=== PATIENT | female | born 1960 | race Caucasian/White ===

== ENCOUNTER → 2019-03-16 10:53 | Outpatient (CLI) | payer MEDICARE, MEDICAID, SELFPAY ==
--- NOTE | ~2019-03-16 | XR_ITS ---
XR chest 2V DATE: 03/16/2019 11:32 INDICATION: Pneumonia due to infectious organism. Weight-bearing. TECHNIQUE: 2 views COMPARISON: 06/03/2017 PA and lateral chest FINDINGS: Normal heart size. There is ill-defined haziness overlying the right mid and lower lung zon es suggesting right-sided pulmonary infiltrate. The left lung appears clear. No pleural effusion or p ulmonary vascular congestion or pneumothorax is detected. IMPRESSION: Right mid and lower lung infiltrate are suggested. Reviewed, dictated and finalized at location B. [employer]IVE ENGINEER
== END ==
DX: J18.9 Pneumonia, unspecified organism (principal); R91.8 Other nonspecific abnormal finding of lung field
CPT/HCPCS: 71046

== ENCOUNTER 2019-12-15 20:49 | Inpatient (IN) | payer MEDICARE, MEDICAID, SELFPAY ==
--- NOTE | ~2019-12-15 | XR_ITS ---
EXAMINATION: XR chest 1V portable INDICATION: Shortness of breath and weakness TECHNIQUE: Portable AP chest at 2009 hours COMPARISON: 03/16/2019 FINDINGS: There are diffuse airspace opacities, worst in the mid and lower lung zones. Cardiomegaly i s noted. There is no pleural effusion or pneumothorax. Neurostimulator leads project over the midthor acic spine. IMPRESSION: 1. Diffuse airspace opacities, consistent with atelectasis and/or pneumonia and/or pulmonary edema. 2. Cardiomegaly. Reviewed, dictated and finalized at location A. IMPRESSION: 1. Diffuse airspace opacities, consistent with atelectasis and/or pneumonia and /or pulmonary edema. 2. Cardiomegaly.
--- NOTE | ~2019-12-15 | CT_ITS ---
EXAMINATION: CTA chest PE protocol DATE: 12/15/2019 22:23 INDICATION: Shortness of breath TECHNIQUE: Computed tomography angiography (CTA) of the chest was performed with 100 mL Omnipaque-350 intravenous contrast timed to evaluate the pulmonary arteries. Coronal maximum intensity projection 3D-reconstructions were created by the technologist. The dose-length product (DLP) was 811.71 mGy-cm. Automated exposure control and iterative reconstruction technique were employed. COMPARISON: 09/14/2013 FINDINGS: The pulmonary arteries are well-opacified. No pulmonary embolism is identified. There are d iffuse groundglass opacities with a mid and lower lung zone predominance. No pleural effusion or pneu mothorax is identified. There is a small pericardial effusion. The heart size is normal. There is med iastinal and bilateral hilar lymphadenopathy. There is severe thoracic spondylosis. Neurostimulator l simran project in the central spinal canal. IMPRESSION: 1. No pulmonary embolism. 2. Commonly reported imaging features of COVID-19 pneumonia are present. Other processes such as infl uenza pneumonia and organizing pneumonia, as can be seen with drug toxicity and connective tissue dis ease, can cause a similar imaging pattern. 3. Small pericardial effusion. 4. Bilateral hilar and mediastinal lymphadenopathy, likely reactive. Reviewed, dictated and finalized at location A. IMPRESSION: 1. No pulmonary embolism. 2. Commonly reported imaging features of COVID-19 pneumonia are present. Other processes such as influenza pneumonia and organizing pneumonia, as can be seen with drug toxicity and connective tissue disease, can cause a similar imaging p attern. 3. Small pericardial effusion. 4. Bilateral hilar and mediastinal lymphadenopathy, likely reactive.
[2019-12-15 20:47] VITALS: BP 131/70; PULSE 94; RESP 16; TEMP 36.8; O2SAT 90
--- NOTE | 2019-12-15 21:08 | ECG_ITS ---
Measurements Intervals [place] Rate: 97 P: 52 MN: 155 QRS: -3 QRSD: 98 T: -42 QT: 393 QTc: 499 Interpretive Statements SINUS RHYTHM POSSIBLE LEFT ATRIAL ENLARGEMENT INCOMPLETE RIGHT BUNDLE BRANCH BLOCK LOW QRS VOLTAGE IN PRECORDIAL LEADS T WAVE ABNORMALITY IN INFERIOR LEADS- CONSIDER ISCHEMIA BASELINE ARTIFACT- I, III, AVR, AVL, AVF, ABNORMAL ECG Electronically Signed On 12-16-2019 6:45:13 CDT by Jamey Conner D.O.
--- NOTE | 2019-12-15 21:10 | ED.GENADULT ---
HPI - General Adult General Chief complaint: Shortness of Breath/Dyspnea Stated complaint: sob Time Seen by Provider: 12/15/19 20:51 Source: patient History of Present Illness HPI narrative: Patient is a 59 y/o female complaining of severe SOB since last (5 days ago). She state that minimal exertion aggravates her SOB. She has some chronic dry cough. She also has mid-sternal chest pain that's worse with cough for 1 month. She denies any fever. She has O2 at home which she only uses with exertion. She states that she normally does not use O2 at rest. Per EMS, her sat was 80% on 4L when they arrived. She was given Neb and IV Solumedrol. Related Data Home Medications Medication Instructions Recorded Confirmed atorvastatin 20 mg PO DAILY 12/15/19 12/16/19 celecoxib 200 mg PO BID 12/15/19 12/16/19 cyclobenzaprine 10 mg PO TID PRN 12/15/19 12/16/19 duloxetine 60 mg PO DAILY 12/15/19 12/16/19 esomeprazole magnesium 20 mg PO DAILY 12/15/19 12/16/19 estradiol 2 mg PO DAILY 12/15/19 12/16/19 gabapentin 600 mg PO TID 12/15/19 12/16/19 metoprolol succinate 25 mg PO DAILY 12/15/19 12/16/19 [id number] acid 1 tablet PO DAILY 12/15/19 12/16/19 [[employer] Women] naloxegol [Movantik] 25 mg PO DAILY 12/15/19 12/16/19 oxycodone [OxyContin] 10 mg PO BID 12/15/19 12/16/19 oxycodone-acetaminophen 5 - 325 tablet PO BID PRN 12/15/19 12/16/19 prednisone 20 mg PO DAILY 12/15/19 12/16/19 sertraline 100 mg PO DAILY 12/15/19 12/16/19 Allergies Allergy/AdvReac Type Severity Reaction Status Date / Time No Known Allergies Allergy Verified 12/15/19 21:02 Review of Systems Constitutional: Constitutional: Denies chills, Denies fever(s), Denies headache(s) and Denies weakness Eyes: Eyes: Denies blurry vision ENT: Denies headache(s) and Denies neck pain Cardiovascular: Cardiovascular: Reports chest pain and Reports dyspnea Respiratory: Respiratory: Reports cough and Reports dyspnea Gastrointestinal: Gastrointestinal: Denies abdominal pain, Denies diarrhea, Denies nausea and Denies vomiting Genitourinary: Genitourinary: Denies hematuria and Denies dysuria Musculoskeletal: Musculoskeletal: Denies back pain and Denies neck pain Neurologic: Denies headache(s) and Denies weakness PMF Past Medical History Medical History (Updated 12/16/19 @ 14:22 by Neela Wilkins MD) Borderline diabetes Chronic respiratory failure COPD (chronic obstructive pulmonary disease) PTSD (post-traumatic stress disorder) Surgical History Surgical History (Updated 12/16/19 @ 11:04 by Sissy Katz DO) History of cholecystectomy History of total right knee replacement S/P insertion of spinal cord stimulator Status post left partial knee replacement Family History Family History (Updated 12/16/19 @ 11:02 by Sissy Katz DO) Mother Depression Congestive heart failure (CHF) Sibling Family history of coronary artery disease Sibling , brother from COVID-19 Central sleep apnea Other Hypertension Social History Social History (Updated 12/16/19 @ 11:03 by Sissy Katz DO) Smoking status: Former smoker Smoking end date: 03/11/15 Alcohol intake: never Substance use: never Living arrangements: with family Occupation/Education: unemployed Additional occupation/education comments: disability Gender identity (if verbalized by the patient): Female Spiritual care concerns: No Exam Const: General: no acute distress and well developed Orientation/consciousness: oriented to person, oriented to place, oriented to time and patient oriented x3 HENMT: Head: normocephalic Ears: external ears normal General nose exam: Normal external nose present Eyes: General: appearance normal, both eyes and all related structures Conjunctivae: conjunctivae normal Neck: Neck: normal visual inspection and full ROM Chest: Chest palpation & inspection: normal inspection of the chest and
[2019-12-15 21:43] LABS: Basophils Percent Auto 0.2 % (0.2-1.2); Eosinophils Percent Auto 0.2 % (0-4.4); Hematocrit 37.4 % (37.0-47.0); Hemoglobin 12.1 g/dL (12.0-15.0); Immature Granulocyte Absolute 0.11 K/mm3 (0.00-0.031); Immature Granulocyte Percent A 0.6 % (0-0.5); Lymphocytes Absolute Auto 2.39 K/mm3 (0.9-3.2); Lymphocytes Percent Auto 12.6 % (18.3-44.2); Mean Corpuscular HGB Conc 32.4 g/dl (32-36); Mean Corpuscular Hemoglobin 27.4 pg (26-34); Mean Corpuscular Volume 84.6 fl (80-100); Mean Platelet Volume 10.5 fl (7.4-10.4); Monocytes Absolute Auto 0.6 K/mm3 (0.1-0.6); Monocytes Percent Auto 3.2 % (2.6-8.5); Neutrophils Absolute Auto 15.7 K/mm3 (1.3-6.7); Neutrophils Percent Auto 83.2 % (45.5-73.1); Nucleated Red Blood Cells Perc 0.2 % (0.0-0.2); Platelet Count Result 379 k/mm3 (150-375); Red Blood Count 4.42 M/mm3 (4.2-5.4); Red Cell Distribution Width 17.6 % (11.5-14.5); White Blood Count 18.9 K/mm3 (4.5-10.0)
[2019-12-15 21:50] LABS: Alveolar/Arterial O2 Gradient 222.8 mmHg; Base Excess ABG -0.6 mEq/l (+/-2.0); Device NASAL CANNULA; Fractional Inspired Oxygen 45 %; HCO3 ABG 22.1 mEq/l (22.0-26.0); Modified Allen's Test Pass; Oxygen Content ABG 16.7 %vol (16.0-22.0); Oxygen Saturation ABG 93.7 % (95.0-100.0); Oxyhemoglobin 90.4 % THb (90.0-100.0); PCO2 ABG 30.9 mmHg (35.0-45.0); PO2 ABG 62.9 mmHg (80.0-100.0); Site Drawn RIGHT RADIAL; Total Hemoglobin 13.1 g/dL (12.0-18.0); pH ABG 7.473 (7.350-7.450)
[2019-12-15 21:54] LABS: Alanine Aminotransferase 572 U/L (4-35); Albumin Level 3.6 g/dL (3.5-5.1); Alkaline Phosphatase 156 U/L (38-126); Anion Gap 8 mmol/L (8-16); Aspartate Amino Transferase 425 U/L (14-36); Bilirubin,Total 0.5 mg/dL (0.2-1.3); Blood Urea Nitrogen 18 mg/dL (7-17); Calcium 8.9 mg/dL (8.4-10.2); Carbon Dioxide 25 mmol/L (22-30); Chloride 102 mmol/L (98-107); Estimated CRCL calculation 88 ml/min; Estimated Glomerular Filt Rate > 60; Glucose 216 mg/dL (65-105); Sodium 135 mmol/L (137-145)
[2019-12-15 21:55] LABS: D Dimer 3.76 ug/mL (<0.48)
[2019-12-15 22:09] LABS: NT Pro B Type Natriuretic Pept 5430 PG/ML (5-100); Troponin I 0.048 ng/mL (0.000-0.034)
[2019-12-15 22:11] VITALS: BP 123/68; PULSE 93; RESP 19; O2SAT 96
--- NOTE | 2019-12-15 22:16 | PC.NURSE ---
Patient being taken to CT.
[2019-12-15] MEDS: FUROSEMIDE INJ 40 MG/4 ML VIAL IV PUSH (22:39)
[2019-12-15 22:53] LABS: Lactic Acid Reflex 2.8 mmol/L (0.7-2.1)
--- NOTE | 2019-12-15 23:10 | PC.NURSE ---
Report given to RIK Navarro to which care transferred.
[2019-12-15 23:31] VITALS: BP 141/68; PULSE 96; RESP 17; TEMP 37.1; O2SAT 95
[2019-12-16] VITALS (21 sets, daily range): BP systolic 108–126; BP diastolic 50–72; PULSE 61–97; RESP 16–28; TEMP 36.3–36.8; O2SAT 90–100; BMI 39.4
--- NOTE | 2019-12-16 01:01 | ADMGEN ---
This patient, Aviva Cooper, was admitted to Intensive Care Unit-7. Patient/family oriented to hospital policies and general routines including ID bracelet, bed and alarms, visiting hours, pain management, procedures, bathroom and other care routines, personal items, smoking policy, room service/diet, and visiting hours. Valuables list has been completed. Information on how to activate the Rapid Response Team has been discussed. Patient/Family are encouraged to report perceived risks to care and to ask questions if they do not understand what they are told or what they should do. report from Ramon JOLLY arrived approx [id number]
[2019-12-16 01:39] LABS: Reflex Lactic Acid Yes or No Add Lactic
[2019-12-16 06:42] LABS: Lactic Acid 4.4 mmol/L (0.7-2.1)
[2019-12-16 06:49] LABS: Troponin I 0.027 ng/mL (0.000-0.034)
--- NOTE | 2019-12-16 07:01 | PM.IMHP ---
H&P: HPI History of Present Illness Date/Time: 12/16/19 07:01 Chief complaint: acute respiratory failure Narrative: Aviva Cooper is a 59 year old female with PMHx COPD on 2L HOT PRN, h/o [place], borderline DMII who presents to the ED with complaints of dyspnea. 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 Symptom onset was about 5 days ago. She started feeling dyspneic last night and slowly uptitrated her O2 to 4L. She is coughing but unable to produce sputum. Previous documentation shows 80% O2 sat on 4L. Brother yesterday COVID-19, planned for tomorrow. she states she did not have any close physical contact with her brother over the past few weeks. She endorses cough but unable to produce sputum. She does not know of any heart failure, does not recall having echocardiogram. She denies fever, chills, nausea, vomiting, diarrhea, chest pain. In the ED: WBC 18.9, D-dimer 3.76, LA 2.8, flu neg, AB.47/30.9/62.9/22. she was up to 12 L high-flow oxygen. Pt admitted to IMU for acute hypoxic respiratory failure. Covid pending. Review of Systems Review of Systems: Narrative: Constitutional: No Weight Change, No Fever, No Chills, No Night Sweats, No Fatigue, No Malaise ENT/Mouth: No Hearing Changes, No Ear Pain, No Nasal Congestion, No Sinus Pain, No Hoarseness, No sore throat, No Rhinorrhea, No Swallowing Difficulty Eyes: No Eye Pain, No Swelling, No Redness, No Discharge, No Vision Changes Cardiovascular: No Chest Pain, No PND, No Claudication, No Edema, No Palpitations Respiratory: No Sputum, No Wheezing, No Smoke Exposure. endorses cough unable to produce sputum, dyspnea Gastrointestinal: No Nausea, No Vomiting, No Diarrhea, No Constipation, No Pain, No Heartburn, No Anorexia, No Dysphagia, No Hematochezia, No Melena, No Flatulence, No Jaundice Genitourinary: No Dysuria, No Urinary Frequency, No Hematuria, No Urinary Incontinence, No Hesitancy Musculoskeletal: No Arthralgias, No Myalgias, No Joint Swelling, No Joint Stiffness, No Back Pain, No Neck Pain Skin: No Skin Lesions, No Pruritis, No Hair Changes Neuro: No Weakness, No Numbness, No Paresthesias, No Loss of Consciousness, No Syncope Psych: No Anxiety/Panic, No Depression, No Insomnia, No Personality Changes, No Delusions Heme/Lymph: No Bruising, No Bleeding,No Lymphadenopathy Endocrine: No Polyuria, No Polydipsia, No Temperature Intolerance [facility] Past Medical History Medical History (Updated 12/16/19 @ 16:56 by Sissy Katz DO) Borderline diabetes Chronic respiratory failure COPD (chronic obstructive pulmonary disease) Hyperlipidemia Myocardial infarct, old PTSD (post-traumatic stress disorder) Surgical History Surgical History (Updated 12/16/19 @ 11:04 by Sissy Katz DO) History of cholecystectomy History of total right knee replacement S/P insertion of spinal cord stimulator Status post left partial knee replacement Family History Family History (Updated 12/16/19 @ 11:02 by Sissy Katz DO) Mother Depression Congestive heart failure (CHF) Sibling Family history of coronary artery disease Sibling , brother from COVID-19 Central sleep apnea Other Hypertension Social History Social History (Updated 12/16/19 @ 11:03 by Sissy Katz DO) Smoking status: Former smoker Smoking end date: 03/11/15 Alcohol intake: never Substance use: never Living arrangements: with family Occupation/Education: unemployed Additional occupation/education comments: disability Gender identity (if verbalized by the patient): Female Spiritual care concerns: No Meds Home Medications and Allergies Home Medications Medication Instructions Recorded Confirmed Type atorvastatin 20 mg PO DAILY 12/15/19 12/16/19 History celecoxib 200 mg PO BID 12/15/19 12/16/19 History cyclobenzaprine 10 mg PO TID PRN 12/15/19 12/16/19 History duloxetine 60
[2019-12-16 08:45] LABS: Basophils Percent Auto 0.1 % (0.2-1.2); Hematocrit 38.9 % (37.0-47.0); Hemoglobin 12.2 g/dL (12.0-15.0); Immature Granulocyte Absolute 0.11 K/mm3 (0.00-0.031); Immature Granulocyte Percent A 0.6 % (0-0.5); Lymphocytes Absolute Auto 1.23 K/mm3 (0.9-3.2); Lymphocytes Percent Auto 7.2 % (18.3-44.2); Mean Corpuscular HGB Conc 31.4 g/dl (32-36); Mean Corpuscular Hemoglobin 27.2 pg (26-34); Mean Corpuscular Volume 86.8 fl (80-100); Mean Platelet Volume 11.5 fl (7.4-10.4); Monocytes Absolute Auto 0.3 K/mm3 (0.1-0.6); Monocytes Percent Auto 1.6 % (2.6-8.5); Neutrophils Absolute Auto 15.6 K/mm3 (1.3-6.7); Neutrophils Percent Auto 90.5 % (45.5-73.1); Nucleated Red Blood Cells Absolute Auto 0.1 K/mm3 (0.0-0.012); Nucleated Red Blood Cells Perc 0.3 % (0.0-0.2); Platelet Count Result 405 k/mm3 (150-375); Red Blood Count 4.48 M/mm3 (4.2-5.4); Red Cell Distribution Width 17.9 % (11.5-14.5); White Blood Count 17.2 K/mm3 (4.5-10.0)
[2019-12-16] MEDS: SODIUM CHLORIDE 0.9% IV 1,000 ML 500 ML IV CONT (09:45)
[2019-12-16] MEDS: ALBUTEROL SULFATE (*SP) INHALER 2 PUFF INHALATION ×3 (09:55→16:08)
[2019-12-16] MEDS: SERTRALINE HCL 50 MG TABLET 100 MG PO (11:45)
[2019-12-16] MEDS: PANTOPRAZOLE 40 MG TABLET PO (11:46)
[2019-12-16] MEDS: ATORVASTATIN 20 MG TABLET PO (11:46)
[2019-12-16] MEDS: METOPROLOL SUCCINATE EXT REL 25 MG TABCR PO (11:46)
[2019-12-16] MEDS: GABAPENTIN 300 MG CAPSULE 600 MG PO ×2 (11:46→20:35)
[2019-12-16] MEDS: MULTIVITAMINS /C LUTEIN (CENTRUM SILVER) TABLET *BKC 1 TAB PO (11:47)
[2019-12-16] MEDS: DULoxetine HCL 60 MG CAPSULE.DR PO (11:47)
[2019-12-16] MEDS: oxyCODONE HCL (*CRX) 10 MG TAB SR 12HR PO ×2 (11:47→20:34)
[2019-12-16] MEDS: methylPREDNISolone SOD SUCC 125 MG VIAL 60 MG IV PUSH ×3 (11:47→23:13)
[2019-12-16] MEDS: guaiFENesin 12 HR 600 MG TABCR 1200 MG PO ×2 (11:47→20:34)
[2019-12-16 12:27] LABS: Alanine Aminotransferase 478 U/L (4-35); Albumin Level 3.5 g/dL (3.5-5.1); Alkaline Phosphatase 136 U/L (38-126); Anion Gap 9 mmol/L (8-16); Aspartate Amino Transferase 216 U/L (14-36); Bilirubin,Total 0.5 mg/dL (0.2-1.3); Blood Urea Nitrogen 21 mg/dL (7-17); Calcium 8.5 mg/dL (8.4-10.2); Carbon Dioxide 27 mmol/L (22-30); Chloride 100 mmol/L (98-107); Estimated CRCL calculation 75 ml/min; Estimated Glomerular Filt Rate > 60; Glucose 296 mg/dL (65-105); Lactic Acid Reflex 2.5 mmol/L (0.7-2.1); Potassium 4.1 mmol/L (3.4-5.0); Sodium 136 mmol/L (137-145)
[2019-12-16 12:33] LABS: Lactate Dehydrogenase 1582 U/L (313-618)
[2019-12-16 12:37] LABS: Troponin I 0.014 ng/mL (0.000-0.034)
[2019-12-16 12:40] LABS: CRP 13.8 mg/dL (<1.0)
[2019-12-16 14:30] LABS: SARS-CoV-2 RNA PCR Negative
[2019-12-16 15:11] LABS: Reflex Lactic Acid Yes or No Add Lactic
[2019-12-16 17:19] LABS: Lactic Acid 1.9 mmol/L (0.7-2.1)
--- NOTE | 2019-12-16 18:01 | PC.NURSE ---
pt transferred to room 203, report given to Chika JOLLY
[2019-12-16] MEDS: ALBUTEROL SULFATE NEB 2.5 MG/0.5 ML INH INHALATION (19:14)
--- NOTE | 2019-12-16 19:45 | PC.NURSE ---
183-Received pt from ICU to room 203- pt oriented to room and routines of floor- monitor SR 89- O2 on 4 l/nc -resp nonlabored- denies SOB at this time -
[2019-12-17] VITALS (15 sets, daily range): BP systolic 136–141; BP diastolic 68–70; PULSE 69–89; RESP 12–22; TEMP 35.9–36.1; O2SAT 96–98
[2019-12-17] MEDS: ALBUTEROL SULFATE NEB 2.5 MG/0.5 ML INH INHALATION ×3 (01:25→15:00)
[2019-12-17] MEDS: CYCLOBENZAPRINE HCL 10 MG TABLET PO (03:05)
[2019-12-17 05:50] LABS: Hematocrit 34.9 % (37.0-47.0); Hemoglobin 11.2 g/dL (12.0-15.0); Mean Corpuscular HGB Conc 32.1 g/dl (32-36); Mean Corpuscular Hemoglobin 26.9 pg (26-34); Mean Corpuscular Volume 83.9 fl (80-100); Mean Platelet Volume 10.7 fl (7.4-10.4); Platelet Count Result 380 k/mm3 (150-375); Red Blood Count 4.16 M/mm3 (4.2-5.4); Red Cell Distribution Width 17.3 % (11.5-14.5); White Blood Count 18.1 K/mm3 (4.5-10.0)
[2019-12-17 06:04] LABS: Alanine Aminotransferase 434 U/L (4-35); Albumin Level 3.3 g/dL (3.5-5.1); Alkaline Phosphatase 117 U/L (38-126); Anion Gap 9 mmol/L (8-16); Aspartate Amino Transferase 171 U/L (14-36); Bilirubin,Total 0.3 mg/dL (0.2-1.3); Blood Urea Nitrogen 25 mg/dL (7-17); Calcium 8.8 mg/dL (8.4-10.2); Carbon Dioxide 27 mmol/L (22-30); Chloride 99 mmol/L (98-107); Estimated CRCL calculation 77 ml/min; Estimated Glomerular Filt Rate > 60; Glucose 296 mg/dL (65-105); Magnesium 2.2 mg/dL (1.6-2.3); Potassium 4.2 mmol/L (3.4-5.0); Sodium 135 mmol/L (137-145)
[2019-12-17] MEDS: GABAPENTIN 300 MG CAPSULE 600 MG PO ×2 (06:21→13:20)
[2019-12-17] MEDS: methylPREDNISolone SOD SUCC 125 MG VIAL 60 MG IV PUSH (06:21)
--- NOTE | 2019-12-17 06:56 | PM.IMPN ---
Progress Note: A&P Additional Plan #Acute on chronic hypoxic respiratory failure #Acute exacerbation of COPD - patient is on 4 L of oxygen, breathing comfortably on 2 L O2 at home - no fevers or sputum production or focal lung findings, likely COPD exacerbation as opposed to pneumonia - steroids: Solu-Medrol 60 mg IV weaning to b.i.d. from q.6, will discharge with steroid taper - albuterol and ipratropium nebs q6hr while awake - ABx: continue azithromycin for anti-inflammatory properties, stopping Rocephin - can continue Mucinex b.i.d. - incentive spirometer reaching 1500 cc - echocardiogram reviewed no sign heart failure, left ventricular systolic function normal, EF 60% # Chronic conditions # PTSD, anxiety / depression: Continue home sertraline, duloxetine # Hyperlipidemia/h/o PA: continue atorvastatin, aspirin # GERD: protonix for home nexium # HTN: cont metoprolol # chronic pain status post spine stimulator - continue home cyclobenzaprine, OxyContin, [place] - can use home movantik if she provides - [employer] reviewed patient is on OxyContin 10 mg b.i.d., [place] 5 mg, last filled 12/05/2019. Diet: Cardiac DVT prophylaxis: Lovenox Code status: Full code Disposition: IMU, likely home tomorrow Time Spent With Patient Time with patient: 15 - 25 minutes Subjective Date/time seen: 12/17/19 06:56 Patient examined bedside. She was moved to IMU last night. O2 weaned down to 4L. She at home uses 2L PRN. She feels much better the like to go home, we discussed trying to wean her oxygen down some more and that she is still on high-dose steroids. Echocardiogram 12/01/2019 from [facility] reviewed showing technically difficult study, normal left ventricular systolic function, EF 60%, some impaired LV relaxation , mild tricuspid regurgitation. patient was planned to have outpatient heart catheterization 12/19/2019. patient denies fever, chills, nausea, vomiting, diarrhea, chest pain, cough, abdominal pain. Is breathing comfortably On 4 L O2. Review of Systems Review of Systems: All systems reviewed & are unremarkable except as noted in HPI and below Exam Narrative: Exam Narrative: - GENERAL: pleasant obese female, non-labored breathing on 4L O2. - EYES: EOMI. Anicteric. - HENT: Moist mucous membranes. No scleral icterus. No cervical lymphadenopathy. - LUNGS: Coarse lung sounds bibasilar, no wheezing, increase in aeration from yesterday. - CARDIOVASCULAR: Regular rate and rhythm. No murmur. No JVD - ABDOMEN: Soft, non-tender and non-distended. No palpable masses. - EXTREMITIES: No edema. Non-tender. - SKIN: No rashes or lesions. Warm. - NEUROLOGIC: No focal neurological deficits. CN II-XII grossly intact - PSYCHIATRIC: Alert and oriented x 3. Cooperative. Appropriate mood and affect. Objective Data Vital Signs Vital Signs: Vital Signs - 24 hr 12/16/19 08:00 12/16/19 10:04 12/16/19 11:46 Temperature 36.7 C Pulse Rate 84 93 Respiratory Rate 19 Blood Pressure 124/57 L Pulse Oximetry 96 92 12/16/19 12:00 12/16/19 14:00 12/16/19 16:00 Temperature 36.4 C L 36.8 C Pulse Rate 92 90 83 Respiratory Rate 28 H Blood Pressure 111/59 L Pulse Oximetry 100 90 12/16/19 19:15 12/16/19 19:18 12/16/19 19:31 Temperature Pulse Rate 88 90 Respiratory Rate 18 18 Blood Pressure Pulse Oximetry 90 12/16/19 19:50 12/16/19 20:00 12/16/19 22:00 Temperature 36.3 C L Pulse Rate 79 87 75 Respiratory Rate 22 H Blood Pressure 109/50 L Pulse Oximetry 96 12/16/19 23:17 12/16/19 23:36 12/17/19 01:25 Temperature 36.3 C L Pulse Rate 78 80 79 Respiratory Rate 22 H 18 Blood Pressure 120/61 Pulse Oximetry 92 12/17/19 01:35 12/17/19 02:00 12/17/19 04:00 Temperature 36.1 C L Pulse Rate 77 73 71 Respiratory Rate 18 22 H Blood Pressure 141/70 H Pulse Oximetry 97 12/17/19 05:31 Temperature Pulse Rate 74 Respiratory Rate Blood Pressure Pulse Oximetry Intake/Output Intake/Outp
[2019-12-17] MEDS: PANTOPRAZOLE 40 MG TABLET PO (09:08)
[2019-12-17] MEDS: guaiFENesin 12 HR 600 MG TABCR 1200 MG PO (09:08)
[2019-12-17] MEDS: ATORVASTATIN 20 MG TABLET PO (09:08)
[2019-12-17] MEDS: oxyCODONE HCL (*CRX) 10 MG TAB SR 12HR PO (09:08)
[2019-12-17] MEDS: ENOXAPARIN 40 MG/0.4 ML SYRINGE SUB-Q (09:09)
[2019-12-17] MEDS: SERTRALINE HCL 50 MG TABLET 100 MG PO (09:09)
[2019-12-17] MEDS: METOPROLOL SUCCINATE EXT REL 25 MG TABCR PO (09:09)
[2019-12-17] MEDS: MULTIVITAMINS /C LUTEIN (CENTRUM SILVER) TABLET *BKC 1 TAB PO (09:09)
[2019-12-17] MEDS: ASPIRIN 81 MG ENTERIC TABLET PO (09:09)
[2019-12-17] MEDS: DULoxetine HCL 60 MG CAPSULE.DR PO (09:09)
--- NOTE | 2019-12-17 14:56 | PM.DS ---
DS: Admitting Diagnosis Admitting Diagnosis Admitting Diagnosis: acute respiratory failure DS: Discharge Diagnosis Discharge Diagnosis (1) COPD exacerbation: Code(s): J44.1 - Chronic obstructive pulmonary disease with (acute) exacerbation Status: Acute (2) Acute on chronic respiratory failure with hypoxia: Code(s): J96.21 - Acute and chronic respiratory failure with hypoxia Status: Acute DS: Summary Hospital Course Reason for hospitalization: acute on chronic hypoxic respiratory failure Hospital Course: patient is a 59-year-old female with past medical history of COPD on 2 L home oxygen therapy p.r.n., PTSD, chronic pain who presents to the hospital with chief complaint dyspnea. Over the past weekend she had gone to her daughter's wedding and was outdoors by a Bonfire for 2 days, the symptoms started since then. she does not know of any sick contacts. She does use home oxygen usually when she leaves the house and as needed. in the ED she was found to be O2 saturation 80% on 4 L. she was coughing but unable to produce any sputum. Of note her brother from COVID-19 the day before after 4 weeks hospital. she was admitted to IMU for further management. COVID-19 was ruled out, echocardiogram was done 12/01/2019 which showed normal left ventricular systolic function, EF 60%. At 1st she had to be increased to the high flow O2 at 12 L, so quickly weaned. By day 2 afternoon she is back to her 2 L baseline oxygen. She feels well denies any wheezing, fever, chills, nausea, vomiting, diarrhea, cough. She would like to go home. She has no fever or sputum production doubt pneumonia. Will treat this acute on chronic hypoxic respiratory failure as a COPD exacerbation. patient to complete prednisone steroid course as well as azithromycin course for anti-inflammatory properties. She does not know if she has ever had PFTs before. She quit smoking 4 years ago, quit vaping 2 years ago. she had an appointment with a campus ambassador to establish care, she will keep that appointment. She will need to reschedule her cardiac catheterization that was planned for 12/19/2019. she will follow-up with primary care physician next week. Rx for prednisone taper and azithromycin sent. Advised patient to take these for next week or 2, staying indoors, and to return to hospital if dyspnea despite increasing oxygen past 4 L. Patient understands and agrees with plan. Labs are stable, leukocytosis increased secondary to steroids, vitals stable on 2 L home oxygen level. Patient stable for discharge. Status at Discharge Functional status at discharge: independent ambulation Overall status at discharge: patient is back to baseline Time Spent with Patient Time attestation: Total time spent providing and/or coordinating discharge services: 35 Exam Narrative: Exam Narrative: - GENERAL: pleasant obese female, non-labored breathing on 2L O2. - EYES: EOMI. Anicteric. - HENT: Moist mucous membranes. No scleral icterus. No cervical lymphadenopathy. - LUNGS: Coarse lung sounds bibasilar, no wheezing, increase in aeration from yesterday. - CARDIOVASCULAR: Regular rate and rhythm. No murmur. No JVD - ABDOMEN: Soft, non-tender and non-distended. No palpable masses. - EXTREMITIES: No edema. Non-tender. - SKIN: No rashes or lesions. Warm. - NEUROLOGIC: No focal neurological deficits. CN II-XII grossly intact - PSYCHIATRIC: Alert and oriented x 3. Cooperative. Appropriate mood and affect. DS: Data Data Completed and Pending Labs on day of discharge: Labs from last 24 hours 12/17/19 12/17/19 12/16/19 04:29 04:29 16:43 WBC 18.1 H RBC 4.16 L Hgb 11.2 L Hct 34.9 L MCV 83.9 MCH 26.9 MCHC 32.1 RDW 17.3 H Plt Count 380 H MPV 10.7 H Sodium 135 L Potassium 4.2 Chloride 99 Carbon Dioxide 27 Anion Gap 9 BUN 25 H Creatinine 0.80 Estim Creat Clear Calc 77 Estimated GFR > 60 Glucose 296 H
[2019-12-17] MEDS: IPRATROPIUM BR 0.02% INH SOLN 0.5 MG/2.5 ML VIAL INHALATION (15:00)
== END 2019-12-17 16:08 | disposition home or self-care (01) | DRG 189 ==
LOC: ANHED 23:26 → ANHICU 12-16 13:10 → ANHIMU 12-16 20:23 → ANHICU 12-21 07:42 → ANHIMU 12-21 07:42
PROVIDERS: Admitting Provider Internal Medicine; Emergency Provider Emergency Medicine; Visit Provider Student in an Organized Health Care Education/Training Program
DX: J96.21 Acute and chronic respiratory failure with hypoxia (principal); J44.1 Chronic obstructive pulmonary disease with (acute) exacerbation; Z99.81 Dependence on supplemental oxygen; Z20.828 Contact with and (suspected) exposure to other viral communicable diseases; I10 Essential (primary) hypertension; E78.5 Hyperlipidemia, unspecified; R73.03 Prediabetes; K21.9 Gastro-esophageal reflux disease without esophagitis; G89.29 Other chronic pain; F43.10 Post-traumatic stress disorder, unspecified; F41.9 Anxiety disorder, unspecified; F32.9 Major depressive disorder, single episode, unspecified; D72.829 Elevated white blood cell count, unspecified; Z96.653 Presence of artificial knee joint, bilateral; I25.2 Old myocardial infarction; Z79.899 Other long term (current) drug therapy; Z87.891 Personal history of nicotine dependence; Z96.82 Presence of neurostimulator
CPT/HCPCS: 36415; 36600; 71045; 71275; 80053; 82728; 82805; 83605; 83615; 83735; 83880; 84484; 85025; 85027; 85380; 86140; 87040; 87635; 87804; 93005; 94640; 96365; 96375; 99291; A9270; C9803; J0456; J0696; J1650; J1940; J2930; J7030; Q9967; U0003